=== PATIENT | male | born 1995 | race Two or more races ===

== ENCOUNTER 2016-09-17 15:48 | Emergency (ER) | payer SELFPAY ==
--- NOTE | 2016-09-17 18:48 | ER Document Report ---
ED Medical Screen (RME) - General Chief Complaint: Weakness Stated Complaint: WEAK Time seen by provider: 18:45 Mode of Arrival: Ambulatory Information source: Patient Notes: 20-year-old male complaining of generalized weakness and fatigue for several days. He passed out at work at [employer]. He is a type II diabetic and takes metformin. I had him get up out of the wheelchair and he very dramatically was stumbling while holding onto the wheelchair and tumbling to prevent himself from falling. His vital signs are stable. He has increased yawning for 2 days. Denies drug use or alcohol. Denies cigarettes. No sore throat runny nose or cough. No chest pain or shortness of breath. No nausea vomiting or diarrhea. No abdominal pain. I had him squat and stand up which he did well. TRAVEL OUTSIDE OF THE [place] IN LAST 30 DAYS: No - Related Data Allergies/Adverse Reactions: No Known Allergies Allergy (Verified 09/17/16 16:21) Past Medical History Renal/ Medical History: Denies: Hx Peritoneal Dialysis Physical Exam - Vital signs Vitals: Temp Pulse Resp BP Pulse Ox 98.9 F 76 16 114/64 98 09/17/16 16:23 09/17/16 16:23 09/17/16 16:23 09/17/16 16:23 09/17/16 16:23 Course - Vital Signs Vital signs: Temp Pulse Resp BP Pulse Ox 98.9 F 76 16 114/64 98 09/17/16 16:23 09/17/16 16:23 09/17/16 16:23 09/17/16 16:23 09/17/16 16:23
[2016-09-17 19:14] LABS: ABSOLUTE BASOPHILS # (AUTO) 0.1 10^3/uL (0.0-0.2); ABSOLUTE EOSINOPHILS # (AUTO) 0.3 10^3/uL (0.0-0.6); ABSOLUTE LYMPHOCYTES (AUTO) 1.7 10^3/uL (0.5-4.7); ABSOLUTE MONOCYTES (AUTO) 0.6 10^3/uL (0.1-1.4); ABSOLUTE NEUT (AUTO) 5.3 10^3/uL (1.7-8.2); BASOPHILS % (AUTO) 0.9 % (0-2); EOSINOPHILS % (AUTO) 3.2 % (0-6); HEMATOCRIT 46.2 % (37.9-51.0); HEMOGLOBIN 15.7 g/dL (13.5-17.0); HGB HCT DIFFERENCE 0.9; LYMPHOCYTES % (AUTO) 21.3 % (13-45); MEAN CORPUSCULAR HEMOGLOBIN 29.4 pg (27.0-33.4); MEAN CORPUSCULAR VOLUME 87 fl (80-97); MONOCYTES % (AUTO) 7.4 % (3-13); RED BLOOD COUNT 5.35 10^6/uL (4.35-5.55); SEGMENTED NEUTROPHILS % (AUTO) 67.2 % (42-78); WHITE BLOOD COUNT 7.9 10^3/uL (4.0-10.5)
[2016-09-17 19:20] LABS: AMORPHOUS SEDIMENT,URINE 1+ /HPF; APPEARANCE,URINE TURBID; BILIRUBIN,URINE NEGATIVE (NEGATIVE); GLUCOSE, URINE NEGATIVE (NEGATIVE); KETONES,URINE NEGATIVE (NEGATIVE); LEUKOCYTE ESTERASE,URINE NEGATIVE (NEGATIVE); NITRITE,URINE NEGATIVE (NEGATIVE); PROTEIN,URINE NEGATIVE (NEGATIVE); URINE SPECIFIC GRAVITY 1.021; UROBILINOGEN,URINE NEGATIVE mg/dL (<2.0)
[2016-09-17 19:33] LABS: URINE BARBITURATES SCREEN NEGATIVE; URINE METHADONE SCREEN NEGATIVE; URINE OPIATES LOW NEGATIVE; URINE PHENCYCLIDINE SCREEN NEGATIVE
[2016-09-17 20:01] LABS: ALANINE AMINOTRANSFERASE 37 U/L (21-72); ALBUMIN 4.8 g/dL (3.5-5.0); ALKALINE PHOSPHATASE 63 U/L (38-126); ANION GAP 16 (5-19); ASPARTATE AMINO TRANSFERASE 25 U/L (17-59); BILIRUBIN,DIRECT 0.2 mg/dL (0.0-0.4); BILIRUBIN,TOTAL 0.4 mg/dL (0.2-1.3); BLOOD UREA NITROGEN 14 mg/dL (7-20); CALCIUM 10.2 mg/dL (8.4-10.2); CARBON DIOXIDE 24 mmol/L (22-30); CHLORIDE 105 mmol/L (98-107); CREATINE KINASE 115 U/L (55-170); CREATININE RESULT 1.08 mg/dL (0.52-1.25); GLUCOSE 79 mg/dL (75-110); MAGNESIUM 1.9 mg/dL (1.6-2.3); POTASSIUM 4.5 mmol/L (3.6-5.0); SODIUM 145.2 mmol/L (137-145); TOTAL PROTEIN 7.4 g/dL (6.3-8.2)
[2016-09-17 22:03] VITALS: BP 123/77
[2016-09-17] MEDS ORDERED: PREDNISONE 20 MG TABLET PO ONE (22:09)
--- NOTE | 2016-09-17 22:25 | ER Document Report ---
ED General - General Chief Complaint: Weakness Stated Complaint: WEAK Mode of Arrival: Ambulatory Information source: Patient, Relative Notes: 20-year-old male history of diabetes presents with complaints of bilateral thigh weakness when he yawns. Patient notes no back pain no numbness loss of bowel or bladder function. Patient states it is difficult to ambulate because of the achiness in his thighs. Patient notes he checks his blood sugar daily and blood sugars have not been over 100 TRAVEL OUTSIDE OF THE [place] IN LAST 30 DAYS: No - HPI Onset: Other - Three-day duration Onset/Duration: Intermittent Quality of pain: Achy Severity: Mild Pain Level: 1 Associated symptoms: Body/muscle aches Exacerbated by: Movement Relieved by: Denies Similar symptoms previously: No Recently seen / treated by doctor: No - Related Data Allergies/Adverse Reactions: No Known Allergies Allergy (Verified 09/17/16 16:21) Past Medical History - General Information source: Patient - Social History Smoking Status: Never Smoker Cigarette use (# per day): No Chew tobacco use (# tins/day): No Smoking Education Provided: No Family History: Reviewed & Not Pertinent Patient has suicidal ideation: No Patient has homicidal ideation: No Endocrine Medical History: Reports: Hx Diabetes Mellitus Type 2 Renal/ Medical History: Denies: Hx Peritoneal Dialysis Surgical Hx: Negative Review of Systems - Review of Systems Notes: REVIEW OF SYSTEMS: CONSTITUTIONAL : Denies fever, chills, or sweats. Denies recent illness. EENT: Denies eye, ear, throat, or mouth pain or symptoms. Denies nasal or sinus congestion or discharge. Denies throat, tongue, or mouth swelling or difficulty swallowing. CARDIOVASCULAR: Denies chest pain. Denies palpitations or racing or irregular heart beat. Denies ankle edema. RESPIRATORY: Denies cough, cold, or chest congestion. Denies shortness of breath, difficulty breathing, or wheezing. GASTROINTESTINAL: Denies abdominal pain or distention. Denies nausea, vomiting , or diarrhea. Denies blood in vomitus, stools, or per rectum. Denies black, tarry stools. Denies constipation. GENITOURINARY: Denies difficulty urinating, painful urination, burning, frequency, blood in urine, or discharge. MUSCULOSKELETAL: Admits to bilateral thigh pain weakness SKIN: Denies rash, lesions or sores. HEMATOLOGIC : Denies easy bruising or bleeding. LYMPHATIC: Denies swollen, enlarged glands. NEUROLOGICAL: Denies confusion or altered mental status. Denies passing out or loss of consciousness. Denies dizziness or lightheadedness. Denies headache. Denies weakness or paralysis or loss of use of either side. Denies problems with gait or speech. Denies sensory loss, numbness, or tingling. Denies seizures. PSYCHIATRIC: Denies anxiety or stress. Denies depression, suicidal ideation, or homicidal ideation. ALL OTHER SYSTEMS REVIEWED AND NEGATIVE. Dictation was performed using [employer] voice recognition software PHYSICAL EXAMINATION: GENERAL: Well-appearing, well-nourished and in no acute distress. HEAD: Atraumatic, normocephalic. EYES: Pupils equal round and reactive to light, extraocular movements intact, sclera anicteric, conjunctiva are normal. ENT: Nares patent, oropharynx clear without exudates. Moist mucous membranes. NECK: Normal range of motion, supple without lymphadenopathy LUNGS: Breath sounds clear to auscultation bilaterally and equal. No wheezes rales or rhonchi. HEART: Regular rate and rhythm without murmurs ABDOMEN: Soft, nontender, nondistended abdomen. No guarding, no rebound. No masses appreciated. Musculoskeletal: Normal range of motion, no pitting or edema. No cyanosis. Patient is able to stand and ambulate with no difficulty NEUROLOGICAL: Cranial nerves grossly intact. Normal speech, normal gait. Normal sensory, motor exams PSYCH: Normal mood, normal affect. SKIN: Warm, Dry, normal turgor, no rashes or lesions noted. Physical Exam - Vital signs Vitals: Temp Pulse Resp BP Pulse Ox 98.9 F 76 16 114/64 98 09/17/16 16:23 09/17/16 16:23 09/17/16 16:23 09/17/16 16:23 09/17/16 16:23 Course - Re-evaluation Re-evalutation: 09/17/16 23:04 Physical examination lab work note no significant abnormality, patient had may have some myositis which may be causing the weakness in his thighs, he'll be started on steroids with the understanding that his blood sugar may be elevated as a result. He is instructed to keep an eye on this and return immediately if there are any other concerns Otherwise patient looks extremely well will be given neurology follow-up Is eating [employer] After performing a Medical Screening Examination, I estimate there is LOW risk for INTRACRANIAL HEMORRHAGE, ISCHEMIC CVA, MALIGNANT DYSRHYTHMIA, ACUTE CORONARY SYNDROME, MENINGITIS, PULMONARY EMBOLISM, or SEPSIS thus I consider the discharge disposition reasonable. I have reevaluated this patient multiple times and no significant life threatening changes are noted. The patient and I have discussed the diagnosis and risks, and we agree with discharging home with close follow-up with the understanding that symptoms and presentations can change. We also discussed returning to the Emergency Department immediately if new or worsening symptoms occur. We have discussed the symptoms which are most concerning (e.g., changing or worsening pain, weakness, vomiting, fever) that necessitate immediate return. - Vital Signs Vital signs: Temp Pulse Resp BP Pulse Ox 98.9 F 63 16 123/77 100 09/17/16 16:23 09/17/16 22:00 09/17/16 22:00 09/17/16 22:00 09/17/16 22:00 - Laboratory Result Diagrams: 09/17/16 18:47 09/17/16 18:47 Laboratory results interpreted by me: 09/17/16 18:47 Sodium 145.2 H Discharge - Discharge Clinical Impression: Leg weakness Qualifiers: Laterality: bilateral Qualified Code(s): R29.898 - Other symptoms and signs involving the musculoskeletal system Condition: Stable Disposition: HOME, SELF-CARE Instructions: Weakness ([facility]) Prescriptions: Prednisone [Deltasone 20 mg Tablet] 1 tab PO DAILY 5 Days Forms: Return to Work Referrals: SHAE WRIGHT MD [ACTIVE STAFF] - Follow up tomorrow
== END 2016-09-17 22:36 | disposition home or self-care (01) ==
LOC: ER 15:48
DX: R53.1 Weakness (principal); M79.1 Myalgia; E11.9 Type 2 diabetes mellitus without complications
CPT/HCPCS: 99284; 36415; 82962; 82550; 83735; 85025; 80053; 81001; 80307; J7512

== ENCOUNTER 2016-09-18 23:27 | Emergency (ER) | payer SELFPAY ==
[2016-09-19] MEDS ORDERED: NORMAL SALINE 1000 ML 1,000 ML IV PRN (06:17)
--- NOTE | 2016-09-19 06:20 | ER Document Report ---
ED General - General Chief Complaint: General Weakness Stated Complaint: WEAKNESS TRAVEL OUTSIDE OF THE [place] IN LAST 30 DAYS: No - HPI Patient complains to provider of: generalized weakness Notes: Patient's coming in for evaluation of generalized weakness. Patient was seen less than 24 hours ago for similar complaint is thought to have possible myositis that the patient has pain in his thighs therefore started on prednisone. Patient states he did get his medication filled her return last night according to nursing notes that 2 syncopal episodes. Upon my evaluation patient is sleeping easily arousable moving all 4 extremities. Patient is not admit to any syncopal episodes. Patient states he just feels generally weak. Patient states recently moved to [place] from [place] a few months ago.. Patient denies any fevers chills nausea vomiting does state he had a cold approximately 2-3 weeks ago. Patient denies any urinary incontinence denies any numbness and tingling denies any back pain denies any bowel incontinence. Patient denies smoking alcohol or drug abuse. Patient does look disheveled. - Related Data Allergies/Adverse Reactions: No Known Allergies Allergy (Verified 09/17/16 16:21) Past Medical History - Social History Smoking Status: Unknown if Ever Smoked Chew tobacco use (# tins/day): No Frequency of alcohol use: None Drug Abuse: None Family History: Reviewed & Not Pertinent Patient has suicidal ideation: No Patient has homicidal ideation: No Endocrine Medical History: Reports: Hx Diabetes Mellitus Type 2 Renal/ Medical History: Denies: Hx Peritoneal Dialysis Surgical Hx: Negative - Immunizations Hx Diphtheria, Pertussis, Tetanus Vaccination: Yes Review of Systems - Review of Systems Constitutional: Weakness EENT: No symptoms reported Cardiovascular: No symptoms reported Respiratory: No symptoms reported Gastrointestinal: No symptoms reported Genitourinary: No symptoms reported Male Genitourinary: No symptoms reported Musculoskeletal: No symptoms reported Skin: No symptoms reported Hematologic/Lymphatic: No symptoms reported Neurological/Psychological: No symptoms reported -: Yes All other systems reviewed and negative Physical Exam - Vital signs Vitals: Temp Pulse Resp BP Pulse Ox 97.7 F 68 18 119/72 98 09/18/16 23:39 09/18/16 23:39 09/18/16 23:39 09/18/16 23:39 09/18/16 23:39 Interpretation: Normal - General General appearance: Appears well, Alert - HEENT Head: Normocephalic, Atraumatic Eyes: Normal Pupils: PERRL - Respiratory Respiratory status: No respiratory distress Chest status: Nontender Breath sounds: Normal Chest palpation: Normal - Cardiovascular Rhythm: Regular Heart sounds: Normal auscultation Murmur: No - Abdominal Inspection: Normal Distension: No distension Bowel sounds: Normal Tenderness: Nontender Organomegaly: No organomegaly - Back Back: Normal, Nontender - Extremities General upper extremity: Normal inspection, Nontender, Normal color, Normal ROM , Normal temperature General lower extremity: Normal inspection, Nontender, Normal color, Normal ROM , Normal temperature, Normal weight bearing. No: Juan Luis's sign - Neurological Neuro grossly intact: Yes Cognition: Normal Orientation: AAOx4 [place] Coma Scale Eye Opening: Spontaneous [place] Coma Scale Verbal: Oriented [place] Coma Scale Motor: Obeys Commands Nereyda Coma Scale Total: 15 Speech: Normal Motor strength normal: LUE, RUE, LLE, RLE Babinski reflex: Normal (flexor plantar) Sensory: Normal Knee - Reflex grade: 2 = Normal Ankle - Reflex grade: 2 = Normal - Psychological Associated symptoms: Normal affect, Normal mood - Skin Skin Temperature: Warm Skin Moisture: Dry Skin Color: Normal Course - Re-evaluation Re-evalutation: 09/19/16 08:52 Patient was able to perform orthostatic testing without any difficulty. No signs of generalized weakness. Patient has good muscle strength throughout. Moving all 4 extremities. Family member at bedside explained that at this time I have no etiology or clinical reasons for the patient's symptoms. Patient was given IV fluids here patient otherwise can be discharged home follow-up with local clinics or primary care physician - Vital Signs Vital signs: Temp Pulse Resp BP Pulse Ox 97.7 F 68 18 97/64 L 96 09/18/16 23:39 09/18/16 23:39 09/18/16 23:39 09/19/16 07:02 09/19/16 07:02 - Laboratory Result Diagrams: 09/19/16 06:20 09/19/16 06:20 Laboratory results interpreted by me: 09/19/16 06:20 WBC 11.4 H RDW 14.3 H Absolute Neutrophils 8.5 H Discharge - Discharge Clinical Impression: Passed out Leg weakness Qualifiers: Laterality: bilateral Qualified Code(s): R29.898 - Other symptoms and signs involving the musculoskeletal system Condition: Good Disposition: HOME, SELF-CARE Instructions: Weakness ([facility]), Family Physicians / Practices Additional Instructions: Your labwork today EKG does not show any critical etiology to explain your symptoms. Your laboratory showed a true hemoglobin A1c is normal 4.7. At this time I would hold off any further metformin and to follow-up with her primary care physician. He may continue the steroids as prescribed by the ER physician earlier. Please drink plenty of water to stay hydrated. I recommend eating frequent small meals recommend light activity for the next 48 hours do not overexert yourself Please follow-up with one of the primary care physician's listed or the [facility] Referrals: [facility] [Provider Group] - Follow up as needed
[2016-09-19 06:42] LABS: ABSOLUTE BASOPHILS # (AUTO) 0.1 10^3/uL (0.0-0.2); ABSOLUTE EOSINOPHILS # (AUTO) 0.1 10^3/uL (0.0-0.6); ABSOLUTE MONOCYTES (AUTO) 0.6 10^3/uL (0.1-1.4); ABSOLUTE NEUT (AUTO) 8.5 10^3/uL (1.7-8.2); BASOPHILS % (AUTO) 0.6 % (0-2); EOSINOPHILS % (AUTO) 0.9 % (0-6); HEMATOCRIT 44.9 % (37.9-51.0); HEMOGLOBIN 15.9 g/dL (13.5-17.0); HGB HCT DIFFERENCE 2.8; LYMPHOCYTES % (AUTO) 17.6 % (13-45); MEAN CORPUSCULAR HEMOGLOBIN 30.2 pg (27.0-33.4); MEAN CORPUSCULAR HGB CONC 35.3 g/dL (32.0-36.0); MEAN CORPUSCULAR VOLUME 86 fl (80-97); MONOCYTES % (AUTO) 5.6 % (3-13); RED BLOOD COUNT 5.25 10^6/uL (4.35-5.55); RED CELL DISTRIBUTION WIDTH 14.3 % (11.5-14.0); SEGMENTED NEUTROPHILS % (AUTO) 75.3 % (42-78); WHITE BLOOD COUNT 11.4 10^3/uL (4.0-10.5)
[2016-09-19 07:03] LABS: ALANINE AMINOTRANSFERASE 39 U/L (21-72); ALBUMIN 4.3 g/dL (3.5-5.0); ALKALINE PHOSPHATASE 54 U/L (38-126); ANION GAP 15 (5-19); ASPARTATE AMINO TRANSFERASE 23 U/L (17-59); BILIRUBIN,DIRECT 0.4 mg/dL (0.0-0.4); BILIRUBIN,TOTAL 0.6 mg/dL (0.2-1.3); BLOOD UREA NITROGEN 11 mg/dL (7-20); CALCIUM 9.8 mg/dL (8.4-10.2); CARBON DIOXIDE 26 mmol/L (22-30); CHLORIDE 103 mmol/L (98-107); CREATINE KINASE 77 U/L (55-170); CREATININE RESULT 0.72 mg/dL (0.52-1.25); GLUCOSE 102 mg/dL (75-110); LIPASE 88.2 U/L (23-300); MAGNESIUM 1.9 mg/dL (1.6-2.3); SODIUM 143.8 mmol/L (137-145); TOTAL PROTEIN 7.1 g/dL (6.3-8.2)
[2016-09-19 07:05] LABS: ALCOHOL < 10 mg/dL (NONE DETECTED)
[2016-09-19 07:18] LABS: TROPONIN I < 0.012 ng/mL
--- NOTE | 2016-09-19 08:12 | EKG REPORT ---
SEVERITY:- ABNORMAL ECG - SINUS RHYTHM PROBABLE LEFT VENTRICULAR HYPERTROPHY : Confirmed by: Lino Sparks MD 19-Sep-2016 08:11:54
[2016-09-19 10:08] VITALS: BP 111/73
== END 2016-09-19 10:08 | disposition home or self-care (01) ==
LOC: ER 23:27
DX: R53.1 Weakness (principal); R55 Syncope and collapse; E11.9 Type 2 diabetes mellitus without complications
CPT/HCPCS: 93005; 99285; 96360; 36415; 82553; 82962; 80307; 82550; 83690; 83735; 85025; 80053; 84484; 83036; 93010; J7030

== ENCOUNTER 2016-09-21 12:33 | Emergency (ER) | payer SELFPAY ==
--- NOTE | 2016-09-21 14:03 | ER Document Report ---
ED General <LISE MONTALVO - Last Filed: 09/21/16 18:19> - General TRAVEL OUTSIDE OF THE [place] IN LAST 30 DAYS: No <MILO CHRISTOPHER - Last Filed: 09/21/16 18:36> - General Chief Complaint: Suicidal Ideation Stated Complaint: SUICIDAL IDEATION Notes: Patient is a 20-year-old male without past history who presents with passive suicidal ideation since April. States his symptoms beginning progressively worse over the last several days and he apparently tried to overdose on clonazepam 48 hours ago and a suicide attempt. He is also continuing to complain of bilateral lower extremity weakness which she states makes it so that he has to walk holding onto a wall or a rail. No history of similar symptoms in the past. He has been assessed on 2 separate occasions in this emergency department for the same complaint without etiology he has not seen a primary doctor regarding his concerns today. He denies any history of similar illness in the past. No prior mental health diagnoses or hospitalizations for suicidal ideation. Denies any vomiting, fever, numbness, bowel or bladder incontinence, or urinary retention. (MILO CHRISTOPHER) - Related Data Allergies/Adverse Reactions: No Known Allergies Allergy (Verified 09/17/16 16:21) Past Medical History - General Information source: Patient - Social History Smoking Status: Former Smoker Chew tobacco use (# tins/day): No Frequency of alcohol use: None Drug Abuse: None Lives with: Friend Family History: Reviewed & Not Pertinent Patient has suicidal ideation: Yes Patient has homicidal ideation: Yes Endocrine Medical History: Reports: Hx Diabetes Mellitus Type 2 Renal/ Medical History: Denies: Hx Peritoneal Dialysis Surgical Hx: Negative - Immunizations Hx Diphtheria, Pertussis, Tetanus Vaccination: Yes <MILO CHRISTOPHER - Last Filed: 09/21/16 18:36> Review of Systems <LISE MONTALVO - Last Filed: 09/21/16 18:19> <MILO CHRISTOPHER - Last Filed: 09/21/16 18:36> - Review of Systems Notes: Constitutional: Negative for fever. HENT: Negative for sore throat. Eyes: Negative for visual changes. Cardiovascular: Negative for chest pain. Respiratory: Negative for shortness of breath. Gastrointestinal: Negative for abdominal pain, vomiting or diarrhea. Genitourinary: Negative for dysuria. Musculoskeletal: Negative for back pain. Skin: Negative for rash. Neurological: Negative for headaches, positive for bilateral lower extremity weakness. 10 point ROS negative except as marked above and in HPI. (MILO CHRISTOPHER) Physical Exam <LISE MONTALVO - Last Filed: 09/21/16 18:19> - Vital signs Interpretation: Normal <MILO CHRISTOPHER - Last Filed: 09/21/16 18:36> - Vital signs Vitals: Temp Pulse Resp BP Pulse Ox 98.4 F 98 16 124/82 96 09/21/16 12:43 09/21/16 12:43 09/21/16 12:43 09/21/16 12:43 09/21/16 12:43 Notes: PHYSICAL EXAMINATION: GENERAL: Somewhat disheveled, malodorous HEAD: Atraumatic, normocephalic. EYES: Pupils equal round and reactive to light, extraocular movements intact, sclera anicteric, conjunctiva are normal. ENT: nares patent, oropharynx clear without exudates. Moist mucous membranes. NECK: Normal range of motion, supple without lymphadenopathy LUNGS: Breath sounds clear to auscultation bilaterally and equal. No wheezes rales or rhonchi. HEART: Regular rate and rhythm without murmurs ABDOMEN: Soft, nontender, normoactive bowel sounds. No guarding, no rebound. No masses appreciated. EXTREMITIES: Normal range of motion, no pitting or edema. No cyanosis. NEUROLOGICAL: Face symmetric. Tongue protrudes midline. Extraocular motions intact. Pupils are 2 mm and equally reactive. Normal speech, abnormal gait intermittently. 5 out of 5 strength in both the distal and proximal upper and lower extremities bilaterally. Sensation is grossly intact throughout. Finger to nose testing normal. Pronator drift normal. PSYCH: Flat affect, poor eye contact. SKIN: Warm, Dry, normal turgor, no rashes or lesions noted. (MILO CHRISTOPHER) Course - Laboratory Result Diagrams: 09/21/16 13:51 09/21/16 13:51 <LISE MONTALVO - Last Filed: 09/21/16 18:19> - Laboratory Result Diagrams: 09/21/16 13:51 09/21/16 13:51 <MILO CHRISTOPHER - Last Filed: 09/21/16 18:36> - Re-evaluation Re-evalutation: 09/21/16 13:56 Patient presents with passive suicidal ideation without a specific plan although he notes he stole his roommates clonazepam and took them gradually over the course of the day 48 hours ago. States the intention in taking these was to kill himself. He denies any specific plan at this time. Patient also complains of lower extremity weakness which he states has been present for the past 1 week and he has been seen on 2 separate occasions in the emergency department the same issue. On exam this appears fictitious as patient is able to stand and pivot into a chair easily when I am walking him. Likewise he has symmetric 5 out of 5 strength both distally and proximally his lower extremities. He has no evidence of muscle wasting. He withdraws to noxious stimuli bilaterally. He has no actual neurologic deficit warrant MRI imaging of the back and given that he has apparently bilateral symptoms per his report he would not be consistent with a brain related lesion. Have offered that he can stay in the emergency department to be voluntarily assessed by psychiatry as it appears that he has been having passive suicidal ideation for the past 5 months and his current symptoms may be related to an underlying undiagnosed psychiatric illness. He does not meet IVC criteria. He is not have any additional complaints or findings on exam. (MILO CHRISTOPHER) - Vital Signs Vital signs: Temp Pulse Resp BP Pulse Ox 98.4 F 98 16 124/82 96 09/21/16 12:43 09/21/16 12:43 09/21/16 12:43 09/21/16 12:43 09/21/16 12:43 - Laboratory Laboratory results interpreted by me: 09/21/16 09/21/16 13:51 13:51 RDW 14.5 H Seg Neutrophils % 86.3 H Lymphocytes % 9.8 L Absolute Neutrophils 8.3 H ALT 76 H Salicylates < 1.0 L Acetaminophen < 10 L Discharge <LISE MONTALVO - Last Filed: 09/21/16 18:19> <MILO CHRISTOPHER - Last Filed: 09/21/16 18:36> - Discharge Clinical Impression: unspecified somatic symptom and related, Passive suicidal ideations Condition: Stable Disposition: HOME, SELF-CARE Additional Instructions: DEPRESSION: Your evaluation reveals that you have mental depression. While symptoms may be vague, they often include disturbance of sleep, fatigue, loss of appetite , and general loss of interest in life. While depression may be a side effect of drugs, or a reaction to a major change in your life, many cases have no known cause. If depression is acute, and related to a major loss in your life, you can expect it to clear completely with time. If you have been depressed a long time , are prone to repeated bouts of depression or low mood, or have been thinking of suicide, get help. Depression can be treated with anti-depressant medication and counselling. Long-term depression will often take a few weeks to clear, even with appropriate medication. Follow-up care is important. SUICIDAL IDEATION: Suicidal ideation is a common medical term for thoughts about suicide, which may be as detailed as a formulated plan, without the suicidal act itself. Although most people who undergo suicidal ideation do not commit suicide, some go on to make suicide attempts. The range of suicidal ideation varies greatly from fleeting to detailed planning, role playing, and unsuccessful attempts. While thoughts about suicide are common, most people do not carry out serious actions to commit suicide. Based upon your evaluation and discussion with you, we do not believe you are currently at risk to act upon your thoughts of suicide. You have agreed to return to the Emergency Department, at any time , if you feel inclined to act upon your suicidal thoughts. FOLLOW-UP CARE: Please follow-up with [facility] on Saturday. If you experience worsening or a significant change in your symptoms, notify the physician immediately or return to the Emergency Department at any time for re-evaluation. Referrals: [facility] [Provider Group] - Follow up as needed
[2016-09-21 14:14] LABS: ABSOLUTE BASOPHILS # (AUTO) 0.1 10^3/uL (0.0-0.2); ABSOLUTE LYMPHOCYTES (AUTO) 0.9 10^3/uL (0.5-4.7); ABSOLUTE MONOCYTES (AUTO) 0.3 10^3/uL (0.1-1.4); ABSOLUTE NEUT (AUTO) 8.3 10^3/uL (1.7-8.2); BASOPHILS % (AUTO) 0.6 % (0-2); EOSINOPHILS % (AUTO) 0.1 % (0-6); HEMATOCRIT 46.6 % (37.9-51.0); HEMOGLOBIN 15.5 g/dL (13.5-17.0); HGB HCT DIFFERENCE -0.1; LYMPHOCYTES % (AUTO) 9.8 % (13-45); MEAN CORPUSCULAR HEMOGLOBIN 29.3 pg (27.0-33.4); MEAN CORPUSCULAR HGB CONC 33.3 g/dL (32.0-36.0); MEAN CORPUSCULAR VOLUME 88 fl (80-97); MONOCYTES % (AUTO) 3.2 % (3-13); RED BLOOD COUNT 5.29 10^6/uL (4.35-5.55); RED CELL DISTRIBUTION WIDTH 14.5 % (11.5-14.0); SEGMENTED NEUTROPHILS % (AUTO) 86.3 % (42-78); WHITE BLOOD COUNT 9.6 10^3/uL (4.0-10.5)
[2016-09-21 14:33] LABS: ALANINE AMINOTRANSFERASE 76 U/L (21-72); ALBUMIN 4.4 g/dL (3.5-5.0); ALKALINE PHOSPHATASE 50 U/L (38-126); ANION GAP 14 (5-19); ASPARTATE AMINO TRANSFERASE 54 U/L (17-59); BILIRUBIN,DIRECT 0.4 mg/dL (0.0-0.4); BILIRUBIN,TOTAL 0.6 mg/dL (0.2-1.3); BLOOD UREA NITROGEN 13 mg/dL (7-20); CALCIUM 10.1 mg/dL (8.4-10.2); CARBON DIOXIDE 28 mmol/L (22-30); CHLORIDE 103 mmol/L (98-107); CREATININE RESULT 0.82 mg/dL (0.52-1.25); GLUCOSE 98 mg/dL (75-110); POTASSIUM 4.3 mmol/L (3.6-5.0); TOTAL PROTEIN 7.3 g/dL (6.3-8.2)
[2016-09-21 14:34] LABS: ALCOHOL < 10 mg/dL (NONE DETECTED)
--- NOTE | 2016-09-21 18:19 | PSYCHOLOGICAL NOTE ---
Psych Note - Psych Note Psych Note: Patient is a 20-year-old male without past history who presents with passive suicidal ideation since April. States his symptoms beginning progressively worse over the last several days and he apparently tried to overdose on clonazepam 48 hours ago and a suicide attempt. He is also continuing to complain of bilateral lower extremity weakness which she states makes it so that he has to walk holding onto a wall or a rail. No history of similar symptoms in the past. He has been assessed on 2 separate occasions in this emergency department for the same complaint without etiology he has not seen a primary doctor regarding his concerns today. Patient disclosed that he took 90 Klonopin an attempt to kill himself 2 days ago. When asked who found him and he stated "I did." He states that he " passed out and then just woke up." He continued disclosed that he did this after his his first [facility] ED visits with concerns of his legs. Patient states that his roommate was in the home at the time but she did not care. He continued disclosed that she "didn't give a she it." He states when he told her he had a seizure she stated that he was lying. Patient states everything just accumulated and when he tries to talk nobody cares. Patient states that he does not have any outpatient services and he got the Klonopin from his roommate. He continued disclosed that he is very tired now. Patient states he was offered to come back home to [place] by his stepmother. However feels that he would be abandoning his roommates and independent him. He states that they have been spending more and more money on [email or web address] and he has to pay all the bills. Patient is alert and orientated to person, place, time and circumstance. Mood is euthymic with congruent affect. Patient denies suicidal and homicidal ideation. Patient denies auditory and visual hallucinations; patient is not demonstrating behaviour what would be congruent to responding to internal stimuli. No delusions are noted. Thought process is organized and linear. Eye contact was well maintained. Intellectual abilities appear to be within average range. Attention and concentration is good. Insight, judgment, and impulse control is good. 300.82 (F45.9) unspecified somatic symptom and related disorder Impression\\plan: Patient is psychiatrically cleared for discharge. Patient does not meet IVC criteria per [place] GS 122C. Patient endorses suicidal ideation and discloses that he overdosed on 90 Klonopin 2 days ago. Patient denies receiving any medical services for this and that he just "woke up"after passing out. Clinician notes patient has been to [facility] ED 3 times in the last 5 days; first 2 times involved concerns of weakness in his legs however patient never identified or disclosed mental health concerns or suicidal ideation. Patient is demonstrating behavior congruent with attempting to obtain secondary gain. Dr. English was consulted on the care and management of this patient; attending physician is in agreement with recommendations and disposition.
--- NOTE | 2016-09-21 18:55 | EKG REPORT ---
SEVERITY:- ABNORMAL ECG - SINUS RHYTHM CONSIDER LEFT VENTRICULAR HYPERTROPHY : Confirmed by: Lino Sparks MD 21-Sep-2016 18:54:45
[2016-09-21 19:05] VITALS: BP 125/73
[2016-09-21 19:05] LABS: APPEARANCE,URINE CLEAR; BILIRUBIN,URINE NEGATIVE (NEGATIVE); GLUCOSE, URINE NEGATIVE (NEGATIVE); KETONES,URINE NEGATIVE (NEGATIVE); LEUKOCYTE ESTERASE,URINE NEGATIVE (NEGATIVE); NITRITE,URINE NEGATIVE (NEGATIVE); PROTEIN,URINE NEGATIVE (NEGATIVE); UROBILINOGEN,URINE NEGATIVE mg/dL (<2.0)
[2016-09-21 19:21] LABS: URINE BARBITURATES SCREEN NEGATIVE; URINE METHADONE SCREEN NEGATIVE; URINE OPIATES LOW NEGATIVE; URINE PHENCYCLIDINE SCREEN NEGATIVE
== END 2016-09-21 19:02 | disposition home or self-care (01) ==
LOC: ER 12:33
DX: R45.851 Suicidal ideations (principal); R53.1 Weakness; Z87.891 Personal history of nicotine dependence; E11.9 Type 2 diabetes mellitus without complications; F45.9 Somatoform disorder, unspecified
CPT/HCPCS: 36415; 80053; 80307; 81001; 82962; 85025; 93005; 93010; 99285

== ENCOUNTER 2016-09-22 05:30 | Emergency (ER) | payer SELFPAY ==
[2016-09-22 06:24] LABS: HEMATOCRIT 43.5 % (37.9-51.0); HGB HCT DIFFERENCE 1.5; MEAN CORPUSCULAR HEMOGLOBIN 29.9 pg (27.0-33.4); MEAN CORPUSCULAR HGB CONC 34.4 g/dL (32.0-36.0); MEAN CORPUSCULAR VOLUME 87 fl (80-97); RED BLOOD COUNT 5.01 10^6/uL (4.35-5.55); RED CELL DISTRIBUTION WIDTH 14.1 % (11.5-14.0); WHITE BLOOD COUNT 9.7 10^3/uL (4.0-10.5)
--- NOTE | 2016-09-22 06:35 | ER Document Report ---
ED General - General Chief Complaint: Psych Problem Stated Complaint: SUICIDAL IDEATION TRAVEL OUTSIDE OF THE [place] IN LAST 30 DAYS: No - HPI Patient complains to provider of: suicide ideation Notes: Patient with multiple recent visits to the ER for weakness and other symptoms with negative workups. Patient was recently seen night prior for passive suicidal ideation. Patient's coming back in the night for depression suicidal ideation generalized weakness after inflicting a superficial abrasion to the left side of the neck. Patient states that this was done with a pocket knife. Patient states his immunizations are up-to-date. Patient denies taking any medications night prior. Patient states his was attempt to harm himself. Otherwise patient has no other complaints. - Related Data Allergies/Adverse Reactions: No Known Allergies Allergy (Verified 09/22/16 08:27) Home Medications: Current Home Medications No Home Medications 09/22/16 [History] Past Medical History - Social History Smoking Status: Current Every Day Smoker Family History: Reviewed & Not Pertinent Endocrine Medical History: Reports: Hx Diabetes Mellitus Type 2 Renal/ Medical History: Denies: Hx Peritoneal Dialysis - Immunizations Hx Diphtheria, Pertussis, Tetanus Vaccination: Yes Review of Systems - Review of Systems Constitutional: No symptoms reported EENT: No symptoms reported Cardiovascular: No symptoms reported Respiratory: No symptoms reported Gastrointestinal: No symptoms reported Genitourinary: No symptoms reported Male Genitourinary: No symptoms reported Musculoskeletal: No symptoms reported Skin: No symptoms reported Hematologic/Lymphatic: No symptoms reported Neurological/Psychological: Depression, Suicidal ideation -: Yes All other systems reviewed and negative Physical Exam - Vital signs Interpretation: Normal - General General appearance: Alert, Other - Patient is disheveled - HEENT Head: Normocephalic, Atraumatic Eyes: Normal Pupils: PERRL Notes: Superficial laceration to the neck under the angle of the mandible - Respiratory Respiratory status: No respiratory distress Chest status: Nontender Breath sounds: Normal Chest palpation: Normal - Cardiovascular Rhythm: Regular Heart sounds: Normal auscultation Murmur: No - Abdominal Inspection: Normal Distension: No distension Bowel sounds: Normal Tenderness: Nontender Organomegaly: No organomegaly - Back Back: Normal, Nontender - Extremities General upper extremity: Normal inspection, Nontender, Normal color, Normal ROM , Normal temperature General lower extremity: Normal inspection, Nontender, Normal color, Normal ROM , Normal temperature, Normal weight bearing. No: Juan Luis's sign - Neurological Neuro grossly intact: Yes Cognition: Normal Orientation: AAOx4 [place] Coma Scale Eye Opening: Spontaneous [place] Coma Scale Verbal: Oriented [place] Coma Scale Motor: Obeys Commands Ne[place] Coma Scale Total: 15 Speech: Normal Motor strength normal: LUE, RUE, LLE, RLE Sensory: Normal - Psychological Associated symptoms: Depressed, Flat affect - Skin Skin Temperature: Warm Skin Moisture: Dry Skin Color: Normal Course - Re-evaluation Re-evalutation: 09/22/16 08:09 Patient's potassium has decreased. Elevated sodium. Patient doesn't look dehydrated will give patient IV fluids. Sternum patient is does have elevation in bilirubin and LFTs. More likely probably slight hemolysis of the blood samples patient does not have any abdominal pain but however will get an ultrasound for further evaluation if this is negative more likely patient will be cleared for psychiatric evaluation 09/22/16 08:10 Superficial laceration cleaned and covered with Band-Aid - Laboratory Result Diagrams: 09/22/16 06:05 09/22/16 06:05 Laboratory results interpreted by me: 09/22/16 09/22/16 09/22/16 06:05 06:05 08:15 RDW 14.1 H Band Neutrophils % 1 L Sodium 146.9 H Potassium 3.1 L D Glucose 123 H Total Bilirubin 2.4 H Direct Bilirubin 2.4 H AST 63 H ALT 89 H Urine Bilirubin MODERATE H Urine Urobilinogen 2.0 H Salicylates < 1.0 L Acetaminophen < 10 L Discharge - Discharge Clinical Impression: Self-inflicted injury, Depressed
[2016-09-22 06:42] LABS: ALANINE AMINOTRANSFERASE 89 U/L (21-72); ALBUMIN 3.7 g/dL (3.5-5.0); ALKALINE PHOSPHATASE 56 U/L (38-126); ANION GAP 17 (5-19); ASPARTATE AMINO TRANSFERASE 63 U/L (17-59); BILIRUBIN,DIRECT 2.4 mg/dL (0.0-0.4); BILIRUBIN,TOTAL 2.4 mg/dL (0.2-1.3); BLOOD UREA NITROGEN 9 mg/dL (7-20); CARBON DIOXIDE 23 mmol/L (22-30); CHLORIDE 107 mmol/L (98-107); CREATININE RESULT 0.67 mg/dL (0.52-1.25); GLUCOSE 123 mg/dL (75-110); SODIUM 146.9 mmol/L (137-145); TOTAL PROTEIN 6.3 g/dL (6.3-8.2)
[2016-09-22 06:43] LABS: BAND NEUTROPHILS % (MANUAL) 1 % (3-5); BASOPHILS % (MANUAL) 0 % (0-2); EOSINOPHILS % (MANUAL) 0 % (0-6); LYMPHOCYTES % (MANUAL) 18 % (13-45); TOTAL CELLS COUNTED 100
[2016-09-22 06:44] LABS: ANISOCYTOSIS SLIGHT
[2016-09-22 07:14] LABS: ALCOHOL < 10 mg/dL (NONE DETECTED); POTASSIUM 3.1 mmol/L (3.6-5.0)
[2016-09-22] MEDS ORDERED: POTASSIUM CHLORIDE 10 MEQ TABLET.SA PO ONE (07:22)
[2016-09-22] MEDS ORDERED: NORMAL SALINE 1000 ML 1,000 ML IV ONE ×2 (07:22→07:45)
[2016-09-22] MEDS ORDERED: NORMAL SALINE 500 ML IV ONE (07:26)
--- NOTE | 2016-09-22 07:44 | EKG REPORT ---
SEVERITY:- ABNORMAL ECG - SINUS TACHYCARDIA BUDDY, CONSIDER BIATRIAL ABNORMALITIES LEFT VENTRICULAR HYPERTROPHY : Confirmed by: Lino Sparks MD 22-Sep-2016 07:43:49
[2016-09-22 08:49] LABS: APPEARANCE,URINE SLIGHTLY-CLOUDY; BILIRUBIN,URINE MODERATE (NEGATIVE); GLUCOSE, URINE NEGATIVE (NEGATIVE); KETONES,URINE NEGATIVE (NEGATIVE); LEUKOCYTE ESTERASE,URINE NEGATIVE (NEGATIVE); NITRITE,URINE NEGATIVE (NEGATIVE); PROTEIN,URINE NEGATIVE (NEGATIVE); URINE SPECIFIC GRAVITY 1.034
[2016-09-22 09:04] LABS: URINE BARBITURATES SCREEN NEGATIVE; URINE METHADONE SCREEN NEGATIVE; URINE OPIATES LOW NEGATIVE; URINE PHENCYCLIDINE SCREEN NEGATIVE
[2016-09-22 19:21] VITALS: BP 116/60
== END 2016-09-22 19:21 | disposition home or self-care (01) ==
LOC: ER 05:30
DX: S11.81XA Laceration without foreign body of other specified part of neck, initial encounter (principal); X78.1XXA Intentional self-harm by knife, initial encounter; F32.9 Major depressive disorder, single episode, unspecified; R53.1 Weakness; E11.9 Type 2 diabetes mellitus without complications; F17.200 Nicotine dependence, unspecified, uncomplicated; R79.89 Other specified abnormal findings of blood chemistry
CPT/HCPCS: 93005; 99285; 96360; 51701; 36415; 82962; 80307 ×4; 83690; 83735; 85025; 80053; 81001; 76705; 93976; 93010; J7030